=== PATIENT | female | born 1980 | race Caucasian/White ===

== ENCOUNTER 2020-07-11 18:53 | Inpatient (IN) | payer OTHER ==
[~2020-07-11] VITALS: Ht 162.6 cm; Wt 90.7 kg
[2020-07-11 21:12] LABS: BASOPHILS % 0.6 % (0.0-2.0); EOSINOPHILS % 0.3 % (0.0-5.0); HEMATOCRIT. 40.6 % (36.0-48.0); HEMOGLOBIN. 14.5 g/dL (12.0-16.0); LYMPHOCYTES % 8.2 % (20.0-50.0); MEAN CORPUSCULAR HEMOGLOBIN 32.1 pg (28.0-32.0); MEAN CORPUSCULAR VOLUME 89.7 fL (81.0-99.0); MEAN PLATELET VOLUME 9.8 fl (7.4-10.4); MONOCYTES % 5.3 % (2.0-8.0); NEUTROPHILS % 85.6 % (40.0-76.0); PLATELET 211 x1000/uL (130-400); RED BLOOD CELL COUNT 4.53 mill/uL (4.2-5.4); RED CELL DISTRIBUTION WIDTH 13.5 % (11.6-14.6)
[2020-07-11 21:17] LABS: CHLORIDE 108 mEq/L (98-107)
[2020-07-11 21:24] LABS: INR 0.9; PROTHROMBIN TIME 10.2 sec (9.6-11.0)
[2020-07-11 21:40] LABS: B-HCG QUANTITATIVE 13610 mIU/mL (<3)
[2020-07-11] MEDS ORDERED: DEXT 5%/LR + PITOCIN 20UNITS/L 1,000 ML IV ONE (21:45)
[2020-07-11] MEDS ORDERED: SODIUM CHLORIDE 0.9% 1,000 ML IV ONE (21:45)
[2020-07-12 04:00] VITALS: BP 133/76
[2020-07-12 08:00] VITALS: BP 147/69
[2020-07-12] MEDS ORDERED: FENTANYL CITRATE/PF 50MCG/ML 2ML VIAL ONE (09:34)
[2020-07-12] MEDS ORDERED: PROPOFOL 200MG/20ML VIAL IV ONE (09:34)
[2020-07-12] MEDS ORDERED: MIDAZOLAM HCL 2 MG/2 ML VIAL ONE (09:34)
[2020-07-12] MEDS ORDERED: ONDANSETRON HCL 4MG/2ML INJ ONE (09:36)
[2020-07-12] MEDS ORDERED: METOCLOPRAMIDE HCL 10MG/2ML VIAL ONE (09:36)
[2020-07-12] MEDS ORDERED: OXYTOCIN 10 UNITS/ML 1ML ONE ×2 (09:58→10:00)
[2020-07-12] MEDS ORDERED: EPHEDRINE SULFATE 50MG/ML VIAL ONE (10:02)
[2020-07-12] MEDS ORDERED: SODIUM CHLORIDE 0.9% 10ML VIAL ONE (10:03)
[2020-07-12] MEDS ORDERED: HYDROMORPHONE HCL/PF 2MG/ML CPJ IV PRN (10:15)
[2020-07-12] MEDS ORDERED: MEPERIDINE HCL/PF 25MG/ML CPJ IV PRN (10:15)
[2020-07-12] MEDS ORDERED: SODIUM CHLORIDE 0.9% 1,000 ML IV ONE (10:15)
[2020-07-12] MEDS ORDERED: ONDANSETRON HCL 4MG/2ML INJ IV PRN ×2 (10:15→10:30)
[2020-07-12] MEDS ORDERED: MORPHINE SULFATE 2 MG/ML CPJ (NOT FOR IM USE) IV PRN (10:15)
[2020-07-12] MEDS ORDERED: RHO(D) IMMUNE GLOBULIN 300 MCG/SYR IM PRN (10:30)
[2020-07-12] MEDS ORDERED: IBUPROFEN 800MG TABLET PO PRN (10:30)
[2020-07-12 12:00] VITALS: BP 137/79
[2020-07-12 16:00] VITALS: BP 142/91
[2020-07-12 16:04] VITALS: BP 142/91
== END 2020-07-12 18:00 | disposition home or self-care (01) | DRG 770 ==
LOC: ER 18:53 → 6EST 07-12 00:18 → ENRESERV 07-12 02:24
PROVIDERS: ADMIT Obstetrics & Gynecology; ATTEND Obstetrics & Gynecology
PROC: 10D17ZZ Extraction of Products of Conception, Retained, Via Natural or Artificial Opening (ICD-10-PCS; principal; 2020-07-12)
DX: O03.4 Incomplete spontaneous abortion without complication (principal); O16.2 Unspecified maternal hypertension, second trimester; O99.842 Bariatric surgery status complicating pregnancy, second trimester; O34.219 Maternal care for unspecified type scar from previous cesarean delivery; Z20.822 Contact with and (suspected) exposure to COVID-19; O99.212 Obesity complicating pregnancy, second trimester; E66.9 Obesity, unspecified; Z82.49 Family history of ischemic heart disease and other diseases of the circulatory system
CPT/HCPCS: 36415; 80053; 84702; 85025; 86850; 86900; 87426; 88305; 93005; 99291; C1758; J2250; J2405; J2590; J2704; J2765; J3010; J3490; J7030